=== PATIENT | female | born 1960 | race Two or more races ===

== ENCOUNTER 2019-06-27 15:00 | Emergency (ER) | payer OTHER ==
[~2019-06-27] VITALS: Ht 160 cm; Wt 72.6 kg
--- NOTE | 2019-06-27 16:20 | NUR ---
US TECH AT BEDSIDE FOR GALLBLADDER ULTRASOUND.
[2019-06-27 16:30] LABS: BASOPHILS # (AUTO) 0.1 /CMM (0.0-0.2); BASOPHILS % (AUTO) 1.1 % (0.0-2.0); EOSINOPHILS % (AUTO) 0.8 % (0.0-6.0); HEMATOCRIT 42 % (33-45); HEMOGLOBIN 13.6 g/dL (11.5-14.8); LYMPHOCYTES # (AUTO) 2.9 /CMM (0.8-4.8); MEAN CORPUSCULAR HGB CONC 33 g/dl (31.0-36.0); MEAN CORPUSCULAR VOLUME 92 fL (82-100); MONOCYTES # (AUTO) 0.6 /CMM (0.1-1.30); MONOCYTES % (AUTO) 7.7 % (2.0-12.0); NEUTROPHILS # (AUTO) 3.8 /CMM (1.8-8.9); NEUTROPHILS % (AUTO) 51.4 % (43.0-81.0); PLATELET COUNT (AUTO) 196 /CMM (150-450); RED BLOOD CELL COUNT(AUTO) 4.52 MIL/uL (4.0-5.2); WHITE BLOOD COUNT (AUTO) 7.3 K/uL (4.3-11.0)
[2019-06-27] MEDS ORDERED: KETOROLAC TROMETHAMINE INJ 30 MG/ML VIAL IV ONE (16:30)
[2019-06-27] MEDS ORDERED: KETOROLAC TROMETHAMINE 15 MG/ML VIAL ONE (16:36)
[2019-06-27 16:50] LABS: CALCIUM, SERUM 9.1 mg/dL (8.5-10.1); CREATININE 0.6 mg/dL (0.6-1.3); POTASSIUM 4.3 mmol/L (3.5-5.1)
--- NOTE | 2019-06-27 16:54 | NUR ---
BIBS FROM HOME TO ER BED 17. AAOX4. NOT IN REPS DISTRESS. AMBUALTORY. CAME IN FOR R UPPER QUAD ABDOMEN PAIN SINCE FRIDAY 10/06 [place]. XAVIER N/V. WAS AT BEDSSIDE FOR EVAL. ORDERS RECEIVED, NOTED AND CARRIED OUT.
[2019-06-27 17:06] LABS: ALBUMIN 3.9 g/dL (3.4-5.0); BILIRUBIN,DIRECT 0.1 mg/dL (0.0-0.2); BILIRUBIN,TOTAL 0.5 mg/dL (0.2-1.0); TOTAL PROTEIN, SERUM 7.8 g/dL (6.4-8.2)
--- NOTE | 2019-06-27 17:29 | NUR ---
Patient discharged to home in stable condition. Written and verbal after care instructions given. Patient verbalizes understanding of instruction. Pt ambulatory with a steady gait
[2019-06-27 17:31] VITALS: BP 127/66
== END 2019-06-27 17:33 | disposition home or self-care (01) ==
LOC: ER 15:06
DX: R10.11 Right upper quadrant pain (principal); Z90.89 Acquired absence of other organs
CPT/HCPCS: 36415; 76705; 80048; 80076; 83690; 85025; 96374; 99284; J1885

== ENCOUNTER 2019-08-03 16:16 | Emergency (ER) | payer OTHER ==
[~2019-08-03] VITALS: Ht 160 cm; Wt 75.3 kg
[2019-08-03 17:02] VITALS: BP 179/89
== END 2019-08-03 17:17 | disposition home or self-care (01) ==
LOC: ER 16:23
DX: K64.4 Residual hemorrhoidal skin tags (principal)